=== PATIENT | male | born 1950 | race Caucasian/White ===

== ENCOUNTER 2022-07-17 04:00 | Inpatient (IN) | payer OTHER, MEDICAID ==
[2022-07-17] VITALS (8 sets, daily range): BP systolic 131–174
[~2022-07-17] VITALS: Ht 167.6 cm; Wt 85.9 kg
--- NOTE | 2022-07-17 07:10 | NUR ---
OPENING NOTE RECEIVED PT LYING IN BED. PT IN BED RESPIRATIONS EVEN, REGULAR, AND NON-LABORED.DENIES ANY PAIN OR DISCOMFORT. WILL CONT TO MONITOR.
--- NOTE | 2022-07-17 07:20 | NUR ---
PAGED DR. MCKEON REGARDING ADMIN ORDERS.
--- NOTE | 2022-07-17 08:00 | NUR ---
RECEIVED ORDER SPOKE WITH DR. MCKEON OVER THE PHONE. RECEIVED ORDERS.
[2022-07-17] MEDS ORDERED: ACETAMINOPHEN 325 MG TABLET PO PRN (08:15)
--- NOTE | 2022-07-17 08:15 | NUR ---
nurse note obtained admission information, admission assessment done. patient in bed, respirations even, non labored, bed in low and locked position call light within reach, bed alarm on.
[2022-07-17] MEDS ORDERED: SIMV-341 PO (08:56)
[2022-07-17] MEDS ORDERED: DILT240C91 PO (08:56)
[2022-07-17] MEDS ORDERED: LEVE500T9 PO (08:57)
--- NOTE | 2022-07-17 09:47 | NUR ---
CONSULT: CARDIO DR. DE IS HERE, JUST NOTIFIED HIM THAT HE HAS A NEW CONSULT. HE WILL SEE THE PATIENT. REASON: CARDIO
--- NOTE | 2022-07-17 09:49 | NUR ---
CONSULT: NEURO TEXTED DR. SANDS, WAITING FOR HIS RESPONSE. REASON FOR CONSULT: SEIZURES
[2022-07-17 09:56] LABS: CALCIUM 8.8 mg/dL (8.4-11.0); CREATININE 1.05 mg/dL (0.55-1.30); POTASSIUM 3.5 mmol/L (3.5-5.1)
[2022-07-17] MEDS ORDERED: DILTIAZEM HCL 240 MG CAP.SR.24H PO ONE (10:00)
[2022-07-17] MEDS ORDERED: levETIRAcetam 500 MG TABLET PO ONE (10:00)
[2022-07-17 10:02] LABS: ALBUMIN 2.8 g/dL (3.4-4.8); TOTAL BILIRUBIN 0.6 mg/dL (0.0-1.0)
[2022-07-17 10:03] LABS: BASOPHILS % (AUTO) 0.4 % (0.0-2.0); EOSINOPHILS # (AUTO) 0.1 K/uL (0.0-0.4); EOSINOPHILS % (AUTO) 0.6 % (0.0-4.0); HEMATOCRIT 38.6 % (36-54); LYMPHOCYTES # (AUTO) 1.4 K/uL (1.0-5.5); LYMPHOCYTES % (AUTO) 13.7 % (20.5-51.5); MEAN CORPUSCULAR VOLUME 88 fL (79.0-98.0); MONOCYTES # (AUTO) 1.1 K/uL (0.0-1.0); MONOCYTES % (AUTO) 10.6 % (1.7-9.3); NEUTROPHILS # (AUTO) 7.4 K/uL (1.8-7.7); NEUTROPHILS % (AUTO) 74.7 % (40.0-70.0); PLATELET COUNT (AUTO) 223 K/uL (130-430); RED CELL DISTRIBUTION WIDTH 14.5 % (9.0-15.0); WHITE BLOOD COUNT (AUTO) 9.9 K/uL (4.8-10.8)
--- NOTE | 2022-07-17 15:00 | NUR ---
AMBULATES TO BATHROOM PT AMBULATES TO BATHROOM WITH RN'S SUPERVISION. STEADY GAIT.
--- NOTE | 2022-07-17 19:10 | NUR ---
CLOSING NOTE PT IN BED, RESPIRATIONS EVEN, REGULAR, AND NON-LABORED. DENIES PAIN OR DISCOMFORT. NO EPISODE OF SEIZURES NOTED DURING SHIFT. SEIZURE PAD PLACED. BED IS LOCKED AND AT LOW POSITION. SAFETY PRECAUTION IN PLACED.ENDORSED CARE TO HEAD AND NECK SURGEON NURSE.
[2022-07-17] MEDS ORDERED: SIMVASTATIN 10 MG TABLET PO SCH (21:00)
[2022-07-17] MEDS: levETIRAcetam 500 MG TABLET PO SCH (21:55)
[2022-07-18] VITALS: BP_SYST 149
--- NOTE | 2022-07-18 07:00 | NUR ---
Shift summary Patient stable throughout night, no complaint of pain or dizziness. Seizure pads in place. Ambulated to bathroom with steady gait. Call light in reach, bed low and locked.
--- NOTE | 2022-07-18 07:20 | NUR ---
OPENING NOTE PT IN BED, SLEEPING WITH RESPIRATIONS EVEN, REGULAR AND NON-LABORED. BILATERAL SEIZURE PADS ARE PLACED. BED IS LOCKED AND AT LOW POSITION. WILL CONT TO MONITOR Addendum: 07/18/22 at 0808 by Virginia Baltazar RN NO S/S OF PAIN/DISCOMFORT NOTED
[2022-07-18 08:00] VITALS: BP_SYST 154
[2022-07-18] MEDS ORDERED: DILTIAZEM HCL 240 MG CAP.SR.24H PO SCH (09:00)
[2022-07-18] MEDS: levETIRAcetam 500 MG TABLET PO SCH (09:08)
--- NOTE | 2022-07-18 11:20 | NUR ---
NOTES PT WERE SITTING ON CHAIR. PT VERBALIZED HE WALKED TO THE CHAIR. DENIES NO PAIN/DISCOMFORT. SAFETY PRECAUTION IN PLACED. WILL CONT TO MONITOR
[2022-07-18 12:00] VITALS: BP_SYST 112
--- NOTE | 2022-07-18 15:22 | NUR ---
SPOKE WITH DR. SANDS THAT PT CAN GO HOME WITHOUT MRI BUT PT HAS TO VISIT 'S OFFICE WITHIN 6 WEEKS.
[2022-07-18 16:00] VITALS: BP_SYST 125
[2022-07-18 16:48] VITALS: BP_SYST 125
--- NOTE | 2022-07-18 17:00 | NUR ---
MD DISCHARGE ORDER TALKED TO DR. MCKEON, PT OKAY TO GO HOME.
--- NOTE | 2022-07-18 18:30 | NUR ---
FAMILY MEMBER TALKED TO MARY ( PT'S SISTER) ABOUT PT'S DISCHARGING. EXPLAINED THAT PT NEEDS TO VISIT 'S OFFICE WITHIN 6 WEEKS UPON DISCHARGE. SHE IS COMING TO PICK HIM UP.
--- NOTE | 2022-07-18 19:15 | NUR ---
D/C Patient Patient given medication reconciliation form and D/C instructions. Exit Care provided. Patient verbalized understanding. MD discussed with patient the results and treatment provided. Ambulatory with steady gait for discharge to home. Patient in stable condition, ID band removed Patient educated on pain management. All belongings sent with patient.
== END 2022-07-18 19:15 | disposition home or self-care (01) | DRG 101 ==
LOC: SMU 06:41 → STU 06:56
PROVIDERS: ADMIT Internal Medicine; ATTEND Internal Medicine
DX: G40.509 Epileptic seizures related to external causes, not intractable, without status epilepticus (principal); F84.0 Autistic disorder; I10 Essential (primary) hypertension; E78.00 Pure hypercholesterolemia, unspecified; T42.6X5A Adverse effect of other antiepileptic and sedative-hypnotic drugs, initial encounter; Z79.899 Other long term (current) drug therapy; Y92.89 Other specified places as the place of occurrence of the external cause
CPT/HCPCS: 36415; 80053; 85025; 95816; G0378